=== PATIENT | female | born 1995 | race Caucasian/White ===

== ENCOUNTER 2024-11-24 13:05 | Outpatient (RCR) | payer SELFPAY | END 2024-11-24 23:59 | disposition home or self-care (01) | LOC: RPT 13:05 | PROVIDERS: ATTENDING PHYSICIAN Advanced Practice Midwife; PRIMARYCARE PHYSICIAN Nurse Practitioner Adult Health | DX: M62.89 Other specified disorders of muscle (principal); R10.2 Pelvic and perineal pain; K59.4 Anal spasm; Z73.6 Limitation of activities due to disability | CPT/HCPCS: 97162; 97530 ==

== ENCOUNTER 2024-12-19 06:43 | Outpatient (RCR) | payer SELFPAY | END 2024-12-19 23:59 | disposition home or self-care (01) | LOC: RPT 06:43 | PROVIDERS: ATTENDING PHYSICIAN Advanced Practice Midwife; PRIMARYCARE PHYSICIAN Nurse Practitioner Adult Health | DX: M62.89 Other specified disorders of muscle (principal); R10.2 Pelvic and perineal pain; K59.4 Anal spasm; Z73.6 Limitation of activities due to disability | CPT/HCPCS: 97110; 97112; 97140 ==

== ENCOUNTER 2025-01-16 06:55 | Outpatient (RCR) | payer SELFPAY | END 2025-01-16 23:59 | disposition home or self-care (01) | LOC: RPT 06:55 | PROVIDERS: ATTENDING PHYSICIAN Advanced Practice Midwife; PRIMARYCARE PHYSICIAN Nurse Practitioner Adult Health | DX: M62.89 Other specified disorders of muscle (principal); R10.2 Pelvic and perineal pain; K59.4 Anal spasm; Z73.6 Limitation of activities due to disability | CPT/HCPCS: 97110; 97112; 97140 ==

== ENCOUNTER 2025-02-06 06:40 | Outpatient (RCR) | payer SELFPAY | END 2025-02-17 23:59 | disposition home or self-care (01) | LOC: RPT 06:40 | PROVIDERS: ATTENDING PHYSICIAN Advanced Practice Midwife; PRIMARYCARE PHYSICIAN Nurse Practitioner Adult Health | DX: M62.89 Other specified disorders of muscle (principal); R10.2 Pelvic and perineal pain; K59.4 Anal spasm; Z73.6 Limitation of activities due to disability | CPT/HCPCS: 97112; 97140; 97530 ==

== ENCOUNTER 2025-03-27 06:51 | Outpatient (RCR) | payer SELFPAY | END 2025-03-27 23:59 | disposition home or self-care (01) | LOC: RPT 06:51 | PROVIDERS: ATTENDING PHYSICIAN Advanced Practice Midwife; PRIMARYCARE PHYSICIAN Nurse Practitioner Adult Health | DX: M62.89 Other specified disorders of muscle (principal); R10.2 Pelvic and perineal pain; K59.4 Anal spasm; R10.20 Pelvic and perineal pain unspecified side; Z73.6 Limitation of activities due to disability | CPT/HCPCS: 97110; 97140 ==